=== PATIENT | male | born 1965 | race Caucasian/White ===

== ENCOUNTER 2018-05-31 11:47 | Emergency (ER) | payer OTHER ==
[2018-05-31 11:57] VITALS: BMI 27.1
[2018-05-31 11:59] VITALS: BP 115/70; PULSE 68; RESP 18; TEMP 97.8; O2SAT 97
--- NOTE | 2018-05-31 13:31 | C.PDOC ---
History Of Present Illness 52 y/o male presents to the ER complaining of rash to the groin region which has been present for the past 1 month. Patient states that he was evaluated by his PMD, he was prescribed Ketoconazole shampoo and anti-itching cream. Patient reports that he has been using the medications without relief. Denies having penile discharge, penile pain, dysuria, hematuria, urinary/bowel incontinence, fever, and chills. Time Seen by Provider: 05/31/18 12:16 Chief Complaint (Nursing): Abnormal Skin Integrity History Per: Patient History/Exam Limitations: no limitations Onset/Duration Of Symptoms: Days Current Symptoms Are (Timing): Still Present Severity: Moderate Past Medical History Reviewed: Historical Data, Nursing Documentation, Vital Signs Vital Signs: Last Vital Signs Temp 97.8 F 05/31/18 11:57 Pulse 68 05/31/18 11:57 Resp 18 05/31/18 11:57 BP 115/70 05/31/18 11:57 Pulse Ox 97 05/31/18 11:57 - Medical History PMH: No Chronic Diseases Surgical History: No Surg Hx Family History: States: No Known Family Hx - Social History Hx Tobacco Use: No Hx Alcohol Use: No Hx Substance Use: No - Immunization History Hx Tetanus Toxoid Vaccination: No Hx Influenza Vaccination: No Hx Pneumococcal Vaccination: No Review Of Systems Constitutional: Negative for: Fever, Chills, Weakness Eyes: Positive for: Other ((-) scleral icterus). Negative for: Redness ENT: Negative for: Mouth Swelling Cardiovascular: Negative for: Chest Pain Respiratory: Negative for: Cough, Shortness of Breath Gastrointestinal: Negative for: Nausea, Vomiting, Diarrhea Genitourinary: Positive for: Rash. Negative for: Dysuria, Hematuria, Penile Discharge, Penile Pain Musculoskeletal: Negative for: Back Pain Neurological: Negative for: Weakness, Numbness, Dizziness Physical Exam - Physical Exam Appears: Non-toxic, No Acute Distress Skin: Normal Color, Warm, Dry Head: Atraumatic, Normacephalic Eye(s): bilateral: Normal Inspection Nose: Normal Oral Mucosa: Moist Neck: Supple Chest: Symmetrical Cardiovascular: Rhythm Regular Respiratory: Normal Breath Sounds, No Rales, No Rhonchi, No Wheezing Male Genital: No Testicular Tenderness, No Testicular Swelling, Other (dry oval flat localized rash to inguinal region, multiple; no penile lesions, no penile discharge) Neurological/Psych: Oriented x3, Normal Speech ED Course And Treatment O2 Sat by Pulse Oximetry: 97 (RA) Pulse Ox Interpretation: Normal Medical Decision Making Medical Decision Making: this patient was given ketoconazole shampoo from his PCP but does not seem to be helping. the rash appears to be fungal and perhaps a cream will be more effective. Disposition Counseled Patient/Family Regarding: Diagnosis, Need For Followup, Rx Given - Disposition Referrals: Jaleel Baez MD [Staff Provider] - Disposition: HOME/ ROUTINE Disposition Time: 13:28 Condition: STABLE Additional Instructions: JOYCE ALVARADO, thank you for letting us take care of you today. Your provider was Peg Negrete MD and you were treated for Tinea Cruris. The emergency medical care you received today was directed at your acute symptoms. If you were prescribed any medication, please fill it and take as directed. It may take several days for your symptoms to resolve. Return to the Emergency Department if your symptoms worsen, do not improve, or if you have any other problems. Please contact your doctor or call one of the physicians/clinics you have been referred to that are listed on the Patient Visit Information form that is included in your discharge packet. Bring any paperwork you were given at discharge with you along with any medications you are taking to your follow up visit. Our treatment cannot replace ongoing medical care by a primary care provider outside of the emergency department. Thank you for allowing the [facility] team to be part of your care today. Prescriptions: Terbinafine HCl [Terbinafine] 1 appl TP BID #30 cream..g. Instructions: Rojelio Itch (DC) Forms: Chat& (ChatAnd) (Tamazight), General Discharge Instructions Print Language: UPPER SORBIAN - Clinical Impression Clinical Impression: Tinea cruris - PA / DRAPERY COUNSELOR / Resident Statement MD/DO has reviewed & agrees with the documentation as recorded. - Scribe Statement The provider has reviewed the documentation as recorded by the Husasin Prakash Provider Attestation All medical record entries made by the Scribe were at my direction and personally dictated by me. I have reviewed the chart and agree that the record accurately reflects my personal performance of the history, physical exam, medical decision making, and the department course for this patient. I have also personally directed, reviewed, and agree with the discharge instructions and disposition.
== END 2018-05-31 13:49 | disposition home or self-care (01) ==
LOC: C.ER 11:47
DX: B35.6 Tinea cruris (principal)